=== PATIENT | male | born 1980 | race Caucasian/White ===

== ENCOUNTER 2023-07-04 00:57 | Emergency (ER) | payer SELFPAY ==
[2023-07-04 01:06] VITALS: TEMP 98.8; BMI 50.2
[2023-07-04] MEDS: HALOPERIDOL LACTATE 5 MG/ML IM ONE (01:54)
[2023-07-04] MEDS: MIDAZOLAM HCL 5 MG/1 ML Single Dose Vial IM ONE ×2 (01:55→05:00)
[2023-07-04] MEDS ORDERED: MIDAZOLAM HCL 5 MG/1 ML Single Dose Vial ONE (04:13)
[2023-07-04 05:17] LABS: METHADONE, UR NEGATIVE (NEGATIVE); URINE BENZODIAZEPINES NEGATIVE (NEGATIVE)
[2023-07-04 05:18] LABS: COCAINE, UR NEGATIVE (NEGATIVE); OPIATES, URI NEGATIVE (NEGATIVE); URINE AMPHETAMINES NEGATIVE (NEGATIVE)
[2023-07-04 05:20] LABS: PHENCYCLIDINE,URINE POSITIVE (NEGATIVE); URINE BARBITURATES NEGATIVE (NEGATIVE)
[2023-07-04 11:34] VITALS: BP 116/61; PULSE 80; RESP 20
== END 2023-07-04 12:00 | disposition home or self-care (01) ==
LOC: JER 00:57
PROC: 3E023GC Introduction of Other Therapeutic Substance into Muscle, Percutaneous Approach (ICD-10-PCS; principal; 2023-07-04)
PROC: 3E023GC Introduction of Other Therapeutic Substance into Muscle, Percutaneous Approach (ICD-10-PCS; 2023-07-04)
PROC: 3E023GC Introduction of Other Therapeutic Substance into Muscle, Percutaneous Approach (ICD-10-PCS; 2023-07-04)
DX: S01.312A Laceration without foreign body of left ear, initial encounter (principal); S09.90XA Unspecified injury of head, initial encounter; R47.81 Slurred speech; R45.1 Restlessness and agitation; M25.511 Pain in right shoulder; V49.20XA Unspecified car occupant injured in collision with unspecified motor vehicles in nontraffic accident, initial encounter
CPT/HCPCS: 70450-TC; 73030-TC-RT-FY; 80307; 99291